=== PATIENT | male | born 1980 | race Caucasian/White ===

== ENCOUNTER 2017-09-07 05:45 | Day surgery (SDC) | payer MEDICAID ==
[~2017-09-07] VITALS: Ht 182.9 cm; Wt 92.3 kg
[2017-09-07] VITALS (17 sets, daily range): BP systolic 113–142; BP diastolic 69–92; Ht 182.9 cm; Wt 92.3 kg
--- NOTE | ~2017-09-07 | OP ---
PATIENT NAME: BREANA JUAN MEDICAL RECORD: [id number] :82 LOCATION:[facility] ADMISSION DATE: SURGEON: YIN ALEMAN MD DATE OF OPERATION: 09/07/2017 PREOPERATIVE DIAGNOSES: Disc herniation large at C5-C6 on the left with left C6 radiculopathy. POSTOPERATIVE DIAGNOSIS: Severe degenerative disc disease at C5-C6 and C6-C7. SURGEON: Yin Aleman MD PROCEDURE C5-C6 and C6-C7 LDR artificial cervical disc. DESCRIPTION OF TECHNIQUE: After induction of general endotracheal anesthesia, the patient was positioned supine on the operating table. Neck was prepped and draped in usual sterile fashion. Fluoroscopic x-ray and spinal needle localized the C5-C6 and C6-C7 interspaces. [place] distracting pins were placed to the bodies of C5 and C6. Disc spaces were incised and a self-retaining retractor was placed deep in the longus colli muscles. Disc material was removed with pituitary rongeurs and curettes at the disc space of C5-C6. Posteriorly, there was a large disc herniation through the posterior longitudinal ligament. This was removed with Cloward rongeurs. Posterior longitudinal ligament was removed with Cloward rongeurs as well. Next, a foraminotomy was carried out on both sides with Cloward rongeurs. Following this, the dura was decompressed well. The C5-C6 LDR artificial cervical disc was placed in the disc space under distraction and fluoroscopic control. [place] pins were removed. Upon removing the [place] pins, it was noted that the distraction at C5-C6 to cause a large anterior disc herniation at C6-C7. Therefore, it was decided to turn attention to the C6-C7 interspace next and [place] distracting pins were placed in the bodies of C6 and C7. C6-C7 disc space was distracted. Disc space was incised and disc material was removed with pituitary rongeurs and curettes. The posterior layer of the posterior longitudinal ligament was removed. The dura was decompressed well. An LDR artificial cervical disc was placed at the C6-C7 interspace under fluoroscopic control. Following this, there was excellent position of the hardware on fluoroscopic x-ray. Meticulous hemostasis was maintained throughout the wound. The bony edges were waxed with bone wax. The wound was irrigated with copious amounts of Ancef irrigant solution. The platysma and subdermal layer closed with interrupted 3-0 Vicryl suture. The skin was reapproximated with Steri-Strips and benzoin. A sterile dressing was applied to the wound. The patient was awakened in good condition and taken to recovery. All counts were reported as correct. Estimated blood loss was minimal. TRANSINT:[id number] Voice Confirmation ID: [id number] DOCUMENT ID: [id number] YIN ALEMAN MD at 1557 CC: [id number] DICTATION DATE: 09/11/17 1207 [employer]: 09/11/17 1429 [facility] 09/08/17 [id number] [place] [address]
[2017-09-08] VITALS (13 sets, daily range): BP systolic 109–141; BP diastolic 61–88
[2017-09-08] MEDS ORDERED: MEDROL DOSE PACK4 MG PO (13:52)
[2017-09-08] MEDS ORDERED: HYDROCODONE-APA1 TAB PO (13:53)
== END 2017-09-08 14:31 | disposition home or self-care (01) ==
LOC: D.ICU 05:45 → UNDOADMIN 05:45 → D.OPS 05:45 → D.SDCHOLD 05:45 → D.ICU 05:45 → D.OPS 07:30 → EDSTATUS 07:30 → D.ICU 11:40 → D.SDCHOLD 11:40 → D.OPS 09-08 14:31 → D.ICU 09-08 14:31
DX: M50.13 Cervical disc disorder with radiculopathy, cervicothoracic region (principal); M50.20 Other cervical disc displacement, unspecified cervical region; K21.9 Gastro-esophageal reflux disease without esophagitis; F17.200 Nicotine dependence, unspecified, uncomplicated; Z01.812 Encounter for preprocedural laboratory examination

== ENCOUNTER 2018-03-31 13:13 | Emergency (ER) | payer MEDICAID ==
[~2018-03-31] VITALS: Ht 182.9 cm; Wt 93.2 kg
[~2018-03-31 13:13] MED LIST: HYDROCODONE-APA1 TAB PO; MEDROL DOSE PACK4 MG PO
[2018-03-31 13:17] VITALS: Ht 182.9 cm; Wt 93.2 kg
[2018-03-31 13:41] LABS: BASOPHILS 0.4 % (0-2); IMMATURE GRANULOCYTES 0.2 % (0-5); LYMPHOCYTES 39.7 % (15-50); MCH 29.3 pg (26.0-34.0); MCV 86.1 fL (80.0-100.0); MEAN PLATELET VOLUME 9.5 fL (7.4-10.4); MONOCYTES 9.4 % (2-11); NEUTROPHILS 48.3 % (40-80); PLATELET COUNT 344 10x3/uL (130-400); RBC 5.46 10x6/uL (4.20-6.10); RDW 13.6 % (11.5-14.5)
[2018-03-31 13:52] LABS: INR 0.97 (0.85-1.17); PROTIME 12.5 SECONDS (11.6-15.0)
[2018-03-31 13:53] LABS: ALBUMIN 4.3 g/dL (3.4-5.0); ALKALINE PHOSPHATASE 91 U/L (46-116); ALT (SGPT) 97 U/L (10-68); APTT 28.1 SECONDS (22.8-39.4); BILIRUBIN - TOTAL 0.39 mg/dL (0.2-1.3); CALC OSMOLALITY 280 mosm/kg (275-300); CALCIUM 9.4 mg/dL (8.5-10.1); CARBON DIOXIDE 26.2 mmol/L (21.0-32.0); CHLORIDE - SERUM 103 mmol/L (98-107); GLUCOSE 97 mg/dL (74-106); POTASSIUM - SERUM 3.4 mmol/L (3.5-5.1); PROTEIN - SERUM 8.1 g/dL (6.4-8.2); SODIUM 141 mmol/L (136-145); UREA NITROGEN 12 mg/dL (7-18); eGFR NON AFRICAN AMERICAN 90 mL/min (90-120)
[2018-03-31 14:05] LABS: CKMB 0.7 U/L (0.0-3.6); CREATINE KINASE 95 UL (21-232); MAGNESIUM - SERUM 1.9 mg/dL (1.8-2.4); TROPONIN-I < 0.017 ng/mL (0.000-0.060)
[2018-03-31 17:48] VITALS: BP 124/66
== END 2018-03-31 17:49 | disposition home or self-care (01) ==
LOC: D.ER 13:13
PROVIDERS: Family Medicine
DX: G81.94 Hemiplegia, unspecified affecting left nondominant side (principal); F41.9 Anxiety disorder, unspecified; R07.9 Chest pain, unspecified; R06.02 Shortness of breath; F17.200 Nicotine dependence, unspecified, uncomplicated

== ENCOUNTER 2019-07-19 14:19 | Emergency (ER) | payer MEDICAID ==
[~2019-07-19] VITALS: Ht 182.9 cm; Wt 90.9 kg
[2019-07-19 14:28] VITALS: Ht 182.9 cm; Wt 90.9 kg
[2019-07-19 14:49] LABS: BASOPHILS 0.4 % (0-2); EOSINOPHILS 3.5 % (0-7); HEMATOCRIT 43.8 % (42.0-54.0); HEMOGLOBIN 14.6 g/dL (13.5-17.5); IMMATURE GRANULOCYTES 0.1 % (0-5); LYMPHOCYTES 44.8 % (15-50); MCH 28.9 pg (26.0-34.0); MCHC 33.3 g/dL (31.0-37.0); MCV 86.7 fL (80.0-100.0); MEAN PLATELET VOLUME 9.4 fL (7.4-10.4); MONOCYTES 7.4 % (2-11); NEUTROPHILS 43.8 % (40-80); PLATELET COUNT 308 10x3/uL (130-400); RBC 5.05 10x6/uL (4.20-6.10); RDW 13.7 % (11.5-14.5); WBC 7.9 10x3/uL (4.8-10.8)
[2019-07-19 15:01] LABS: CALC OSMOLALITY 281 mosm/kg (275-300); CARBON DIOXIDE 25.4 mmol/L (21.0-32.0); CHLORIDE - SERUM 105 mmol/L (98-107); GLUCOSE 115 mg/dL (74-106); POTASSIUM - SERUM 3.4 mmol/L (3.5-5.1); SODIUM 141 mmol/L (136-145); UREA NITROGEN 12 mg/dL (7-18); eGFR NON AFRICAN AMERICAN 89 mL/min (90-120)
[2019-07-19 15:09] LABS: ALKALINE PHOSPHATASE 67 U/L (30-120); ALT (SGPT) 37 U/L (10-68); AMYLASE - SERUM 38 U/L (25-115); BILIRUBIN - TOTAL 0.47 mg/dL (0.2-1.3); LIPASE 80 U/L (73-393); PROTEIN - SERUM 7.3 g/dL (6.4-8.2)
[2019-07-19 15:10] LABS: TROPONIN-I < 0.017 ng/mL (0.000-0.060)
[2019-07-19 17:20] VITALS: BP 104/60
== END 2019-07-19 17:20 | disposition home or self-care (01) ==
LOC: D.ER 14:19
PROVIDERS: Family Medicine
DX: R10.31 Right lower quadrant pain (principal); R55 Syncope and collapse; R01.1 Cardiac murmur, unspecified